=== PATIENT | male | born 2000 | race Caucasian/White ===

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

== ENCOUNTER 2023-04-03 05:00 | Day surgery (SDC) | payer OTHER ==
[2023-04-02 11:51] VITALS: BMI 28.5
[2023-04-03 15:20] VITALS: BP 121/63; PULSE 62; RESP 15; TEMP 98.2
== END 2023-04-03 14:36 | disposition home or self-care (01) ==
LOC: JASU-ENDO 05:00
PROVIDERS: ATTEND Student in an Organized Health Care Education/Training Program
PROC: 0DB78ZX Excision of Stomach, Pylorus, Via Natural or Artificial Opening Endoscopic, Diagnostic (ICD-10-PCS; 2023-04-03)
PROC: 0DB68ZX Excision of Stomach, Via Natural or Artificial Opening Endoscopic, Diagnostic (ICD-10-PCS; principal; 2023-04-03 14:00)
DX: K29.50 Unspecified chronic gastritis without bleeding (principal); K44.9 Diaphragmatic hernia without obstruction or gangrene
CPT/HCPCS: 88305-TC; 88342-TC

== ENCOUNTER 2023-08-25 01:55 | Emergency (ER) | payer OTHER ==
[2023-08-25 02:01] VITALS: BP 120/81; RESP 16; TEMP 97.6; BMI 29.3
[2023-08-25 02:11] VITALS: PULSE 71
[2023-08-25 02:56] LABS: BASO % 1.2 % (0-2.0); EOS % 8.7 % (0-4.5); HEMATOCRIT 46.5 % (35.4-49); HEMOGLOBIN 16.2 GM/dL (11.7-16.9); LYMPH % 29.1 % (8-40); MCH 30.6 pg (25.7-33.7); MCHC 34.8 g/dl (32.0-35.9); MEAN CELL VOLUME 87.9 fl (80-96); MEAN PLT VOLUME 8.2 fl (7.5-11.1); PLATELET COUNT 250 10^3/uL (134-434); RBC 5.29 M/mm3 (4.00-5.60); RDW 12.9 % (11.9-15.9); WHITE BLOOD COUNT 6.8 K/mm3 (4.0-10.0)
[2023-08-25] MEDS ORDERED: HYDROmorphone HCl 2 MG/ML VIAL IVPUSH ONE (03:21)
[2023-08-25 03:24] LABS: POTASSIUM 3.7 mmol/L (3.5-5.1)
[2023-08-25 03:26] LABS: CALCIUM 9.1 mg/dL (8.5-10.1)
[2023-08-25 03:27] LABS: ALBUMIN 4.5 g/dl (3.4-5.0); BLOOD UREA NITROGEN 13.3 mg/dL (7-18); MAGNESIUM 2.3 mg/dL (1.8-2.4)
[2023-08-25 03:29] LABS: CREATININE 0.9 mg/dL (0.55-1.3)
[2023-08-25 03:30] LABS: PHOSPHOROUS 3.8 mg/dL (2.5-4.9)
[2023-08-25 03:31] LABS: BILIRUBIN,TOTAL 0.4 mg/dL (0.2-1); TOT PROT 7.3 g/dl (6.4-8.2)
== END 2023-08-25 04:14 | disposition home or self-care (01) ==
LOC: JER 01:55
DX: R20.2 Paresthesia of skin (principal); R51.9 Headache, unspecified
CPT/HCPCS: 36415; 80053; 83735; 84100; 85025; 99283-25